=== PATIENT | male | born 1975 ===

== ENCOUNTER 2024-05-06 01:16 | Emergency (ER) | payer OTHER, SELFPAY ==
[2024-05-06 01:16] VITALS: BP 182/112
--- NOTE | 2024-05-06 01:31 | ED.GENMED ---
History of Present Illness
General
Chief Complaint: Blood Pressure Problem
Source: patient
Exam Limitations: none
Time Seen by Provider: 05/06/24 01:17
History of Present Illness
History of Present Illness:
This is a 48 year old male that is brought in by the police. Police state that he was being processed for incarceration and was found to have Hypertension with a BP of 210/119. Patient states that he does have a history of HTN. Denies any fever,
chills, chest pain, SOB, abd pain, nausea, vomiting, diarrhea, headache, dizziness, urinary burning.
Past History
Past History
ED Past Medical History: HTN; Negative Asthma, Hypercholesterolemia or NIDDM
ED Past Surgical History: None
Social History
Tobacco: Non-smoker
Alcohol: None
Personal:
Living: with family
Review of Systems
Review of Systems
All Other Systems: ROS reviewed and negative except as documented in HPI and ROS
Constitutional: Reports no symptoms; Denies fever or chills
EENT: Reports no symptoms
Respiratory: Reports no symptoms; Denies cough or trouble breathing
Cardiac: Reports no symptoms; Denies chest pain
ABD/GI: Reports no symptoms; Denies abdominal pain, nausea, vomiting or diarrhea
: Reports no symptoms; Denies dysuria, frequency or urgency
Musculoskeletal: Reports no symptoms
Skin: Reports no symptoms
Neurological: Reports no symptoms; Denies dizzy or headache
Psychiatric: Reports no symptoms
Phy Exam
General Physical Exam
General Presentation: well appearing and no apparent distress
General age: appears stated age
General Skin: warm and dry
General Habitus: normal
General Mental: alert
General Hydration: appears well hydrated
ENT Exam
ENT Exam: TM's normal, pharynx normal and neck supple
Eye Exam
Eye Exam: EOMI
Cardiovascular Exam
Cardiovascular Exam: regular rate/rhythm, no edema, no murmur and normal peripheral pulses
Pulmonary Exam
Pulmonary Exam: lungs clear, no respiratory distress, no rales, chest non tender, no crackles, no rhonchi, no wheezing and no cough
Gastrointestinal Exam
Gastrointestinal Exam: normal bowel sounds, non tender, soft, no organomegaly, no pulsatile mass and non distended
Musculoskeletal Exam
Musculoskeletal Exam: full ROM and no edema
Skin Exam
Skin Exam: normal color, warm/dry, no rash, no petechia and other (Small open area on neck, patient states that he has an infected hair. Negative for any drainage or redness. )
Psychiatric Exam
Psychiatric Exam: normal mood/affect
Course
Orders/Labs/Results
Orders:
Orders
05/06/24 01:30
Add On- LAB Urgent
Tests Added?: TSH with reflex Free T4
Electrocardiogram (*1) Urgent
Reason for Study: Hypertension, Benign
EKG- Treatment ONCE
CBC/With Diff [Complete Blood Count/With Diff] Urgent
CMP [Comprehensive Metabolic Panel] Urgent
TSH Reflex To Free T4 Urgent
Comment: ADD ON
05/06/24 01:32
Lisinopril [Zestril] 40 mg PO NOW STA
Abnormal Lab Results
05/06/24
01:30
WBC 11.3 H 10^3/uL
(4.8-10.8)
RBC 4.67 L 10^6/uL
(4.70-6.10)
MPV 10.7 H fL
(7.4-10.4)
Absolute Neuts (auto) 9.2 H 10^3/uL
(1.4-6.5)
Absolute Lymphs (auto) 1.0 L 10^3/uL
(1.2-3.4)
Absolute Monos (auto) 0.9 H 10^3/uL
(0.1-0.6)
Neutrophils % 81.5 H %
(42.2-75.2)
Lymphocytes % 9.2 L %
(20.5-51.1)
Glucose 102 H mg/dl
(70-99)
05/06/24 01:30
05/06/24 01:30
WBC very slightly elevated. glucose nonfasting. TSH normal at 1.09
Vital Signs
Initial and Last Documented VS:
Initial Vital Signs
Pulse Resp BP Pulse Ox
75 18 182/112 100
05/06/24 01:16 05/06/24 01:16 05/06/24 01:16 05/06/24 01:16
Last Documented Vital Signs
Temp Pulse Resp BP Pulse Ox
98.6 F 76 18 188/98 100
05/06/24 02:23 05/06/24 02:23 05/06/24 01:16 05/06/24 02:23 05/06/24 02:23
MDM/Problems Addressed
Differential Diagnosis Includes:
Hypertension,
MDM/Problems Addressed:
This is a 48 year old male that is brought in by police with c/o hypertension. Told that patient needs medical clearance for incarceration. Patient has no complaints.
When questioned patient again patient then states that he use to take Lisinopril 40mg. Will medicate patient with Lisinopril 40mg. Will check labs.
Spoke with Dr. Vargas Will old off on an IV medication. Will give patient a prescription for oral medication daily. Patient to follow up with the [facility] doctor for recheck and monitoring of his BP.
Chronic conditions affecting care: HTN
Acute Exacerbation and/or Progression of Chronic Illness: HTN
*Pulse Oximetry
Patient hypoxic: no
*EKG
Interpreted by ED Provider?: Yes
Heart Rate: 83
Rate: normal
Rhythm: sinus
[place]: normal axis
Interval: normal interval
QRS Pattern: normal QRS
Ischemia: T-wave inversion (V4, V5, V6)
*Gaming Surveillance Observer Interpretation
Rate: Gaming Surveillance Observer- N/A
*Critical Care Note
Total Time (30-74mins, 75-104mins- exclusive of procedures): Not Applicable
ED Attending Note
-
Portions of this chart may have been created with voice recognition software.� Occasional wrong word or��sound alike� substitutions may have occurred due to the inherent limitations of voice recognition software.
Discharge Plan
Departure
Patient Disposition: [facility]
Date of Disposition: 05/06/24
Time of Disposition: 02:23
Patient with high blood pressure during this ER visit?: Yes
Condition: Good
Covid-19: Not Applicable
Discharge Problem:
Hypertension
Instructions: High Blood Pressure (DC), BLOOD PRESSURE
Prescriptions:
New
lisinopril 40 mg tablet
40 mg PO DAILY Qty: 30 0RF
Referrals:
[facility] [Family Provider] -
Activity Restrictions/Additional Instructions:
As discussed, patient has been given his Lisinopril that he was taking before. According to new guide lines it is detrimental to the patient to drop his BP to fast as he has most likely been living at this elevation for a long time. Please follow up
with the [facility] doctor for recheck of your blood pressure. You have been given a prescription for Daily Lisinopril. PATIENT IS CLEARED FOR INCARCERATION. IF YOU HAVE ANY OTHER CONCERNS PLEASE RETURN TO THE EMERGENCY ROOM.
Interventions
Interventions:
*Risk Screen - Suicide Last Done: 05/06/24 01:19
*General Assessment Last Done: 05/06/24 01:19
*Neglect/Abuse Screening Last Done: 05/06/24 01:19
*Nursing Disposition Last Done: 05/06/24 02:35
ED- Cardiac Assessment Last Done: 05/06/24 01:24
ED- Neurological Assessment Last Done: 05/06/24 01:24
ED- Pulmonary Assessment Last Done: 05/06/24 01:24
Discharge Date and Time
Discharge Date/Time: 05/06/24 02:39
Print Language: BHUTANESE
[2024-05-06 01:38] LABS: % Basophils 0.4 % (0-2); % Eosinophils 0.4 % (0-6); % Immature Granulocytes 0.4 % (0-0.5); % Lymphocytes 9.2 % (20.5-51.1); % Monocytes 8.1 % (1.7-9.3); % Neutrophils 81.5 % (42.2-75.2); Absolute Monocytes 0.9 10^3/uL (0.1-0.6); Absolute Neutrophils 9.2 10^3/uL (1.4-6.5); Hematocrit 39.1 % (39.0-52.0); Hemoglobin 13.2 g/dL (13.0-18.0); Mean Corp Hgb Conc. 33.8 g/dL (33.0-37.0); Mean Corpuscular Hgb 28.3 pg (27.0-31.0); Mean Corpuscular Volume 83.7 fL (80.0-94.0); Mean Platelet Volume 10.7 fL (7.4-10.4); Nucleated Red Blood Cells % 0 % (-); Platelet Count 298 10^3/uL (130-400); Red Blood Cell Count 4.67 10^6/uL (4.70-6.10); Red Cell Dist. Width 13.3 % (11.5-14.5); White Blood Cell Count 11.3 10^3/uL (4.8-10.8)
[2024-05-06] MEDS: ZESTRIL 40 MG PO (01:43)
[2024-05-06 01:52] LABS: ALT (SGPT) 17 U/L (0-50); AST (SGOT) 23 U/L (17-59); Albumin 4.4 g/dl (3.5-5.0); Alkaline Phosphatase 96 U/L (38-126); Blood Urea Nitrogen 16 mg/dl (9-20); Calcium 9.3 mg/dl (8.4-10.2); Carbon Dioxide 29 mmol/L (22-30); Chloride 101 mmol/L (98-107); Glucose 102 mg/dl (70-99); Potassium 4.5 mmol/L (3.5-5.1); Sodium 143 mmol/L (135-145); Total Bilirubin 0.5 mg/dl (0.2-1.3); Total Protein 7.6 g/dl (6.3-8.2); eGFR > 60.00
[2024-05-06 02:23] VITALS: BP 188/98
[2024-05-06 02:52] LABS: TSH Reflex To Free T4 1.09 uIU/ml (0.47-4.68)
== END 2024-05-06 02:39 ==
LOC: EMR 01:16
PROVIDERS: Clinical Nurse Specialist Family Health; EMERGENCY PHYSICIAN Emergency Medicine
DX: I10 Essential (primary) hypertension (principal); Z79.899 Other long term (current) drug therapy
CPT/HCPCS: 99284; 80053; 84443; 85025; 93005